=== PATIENT | female | born 1955 | race Caucasian/White ===

== ENCOUNTER 2021-03-24 15:17 | Outpatient (CLI) | payer MEDICARE, SELFPAY ==
--- NOTE | ~2021-03-24 | MM_ITS ---
EXAMINATION: MM screening rashmi BI w santino HISTORY: Screening mammogram TECHNIQUE: Craniocaudal and mediolateral oblique 3-D tomosynthesis images were obtained and synthetic 2-D images were generated. CAD analysis was submitted and interpreted. COMPARISON: 07/28/2017, 12/22/2015, 10/28/2014 bilateral digital screening mammogram examinations BREAST PARENCHYMAL COMPOSITION: The breasts are heterogeneously dense, which may obscure small masses . FINDINGS: There is no evidence of suspicious mass, calcification, or architectural distortion to sugg est malignancy in either breast. There has been no suspicious interval change. IMPRESSION: 1. No mammographic evidence of malignancy. 2. Recommend routine screening mammography in one year. BI-RADS Category 1: Negative Reviewed, dictated and finalized at location A.
== END 2021-03-24 15:18 | disposition home or self-care (01) ==
LOC: ANHIMG 15:26
PROVIDERS: PCP Family Medicine; Visit Provider Student in an Organized Health Care Education/Training Program
DX: Z12.31 Encounter for screening mammogram for malignant neoplasm of breast (principal)
CPT/HCPCS: 77063; 77067

== ENCOUNTER 2021-05-04 02:03 | Day surgery (SDC) | payer MEDICARE, SELFPAY ==
[2021-04-21 15:19] VITALS: BMI 24.5
[2021-05-04 08:44] VITALS: BP 129/76; PULSE 65; RESP 18; TEMP 35.9; O2SAT 99
[2021-05-04] MEDS: LACTATED RINGERS 1,000 ML 150 ML IV CONT (08:46)
--- NOTE | 2021-05-04 08:51 | SUR.PREOP ---
Patient was able to remove jewelry while in Pre Op. Ring was given to her .
--- NOTE | 2021-05-04 09:06 | WPDGICN ---
Assessment and Plan Assessment and plan (1) History of colon polyps: Code(s): Z86.010 - Personal history of colonic polyps Status: Acute Assessment and Plan: Patient has a history of colon polyps for this reason surveillance colonoscopy will be performed. (2) Abdominal discomfort: Code(s): R10.9 - Unspecified abdominal pain Status: Acute Assessment and Plan: Patient has epigastric pain. This appears to have improved with Nexium. EGD is planned to assess more thoroughly. Patient continues to have discomfort at the umbilicus. (3) Abnormal bowel movement: Code(s): R19.8 - Other specified symptoms and signs involving the digestive system and abdomen Status: Acute Assessment and Plan: Patient notices abnormal bowel movements. They have changed in texture incised. Plan to evaluate with colonoscopy. High-fiber diet advised. GI Consult Note Consult date/time: 05/04/21 09:06 HPI: Ofelia Robles is a 66 year old female Presents for both colonoscopy an EGD. Patient has a prior history of colon polyps. Recently has had epigastric discomfort. She presents for colonoscopy because of history of colon polyps. She has had epigastric pain this appears to have improved on starting Nexium. She continues to have vague discomfort at the umbilicus. Family history is noncontributory. [facility] Past Medical History Medical History (Updated 02/10/21 @ 10:11 by Gene Mtz MD) Blood clotting disorder History of colon polyps Hyperlipidemia due to dietary fat intake Surgical History Surgical History H/O section H/O LEEP History of dilation and curettage Family History Family History Sibling Family history of multiple sclerosis Family history of malignant neoplasm of breast, Onset Age: 57 Other Family history of malignant neoplasm Hypertension Social History Social History Smoking status: Never smoker Second hand tobacco smoke exposure: No Alcohol intake: current Drinks per week: 3 Living arrangements: with family Spiritual care concerns: No Meds Home Medications and Allergies Home Medications Medication Instructions Recorded Confirmed Type cholecalciferol (vitamin D3) 50 50 mcg PO DAILY 04/22/20 04/21/21 History mcg (2,000 unit) capsule multivitamin 1 cap PO DAILY 04/22/20 04/21/21 History estradiol 10 mcg vaginal tablet 10 mcg VAGINAL 2XW #24 tablet 11/11/20 04/21/21 Rx oxybutynin chloride 5 mg 5 mg PO DAILY PRN 01/16/21 04/21/21 History tablet,extended release 24 hr esomeprazole magnesium 20 mg 20 mg PO DAILY 02/10/21 04/21/21 History capsule,delayed release atorvastatin 10 mg PO DAILY 04/21/21 04/21/21 History Allergies Allergy/AdvReac Type Severity Reaction Status Date / Time No Known Allergies Allergy Mild Verified 05/04/21 08:43 Vital Signs Vital Signs - 24 hr 05/04/21 08:44 Temperature 96.7 F L Pulse Rate 65 Respiratory Rate 18 Blood Pressure 129/76 Pulse Oximetry 99 Exam Narrative: Exam Narrative: Physical exam reveals patient be alert. Vital signs stable. HEENT exam unremarkable. Patient is anicteric. Lungs are clear to auscultation and percussion. Heart is without murmur or extra sounds. Abdominal exam bowel sounds present soft nontender with no organomegaly. Digital external rectal exam normal.
--- NOTE | 2021-05-04 09:15 | WPDANESEPPF ---
Anes - Initial Pre Proc Eval Procedure: Operation Date: 05/04/21 09:30 Proposed Procedures p Esophagogastroduodenoscopy & Screening Colonoscopy - Gene Mtz MD Date/Time: 05/04/21 09:15 Surgeon: Gene Mtz MD Pre Op Diagnosis: hx. Colon polyp, epigastric pain Patient Data Age: 66 Gender: F Height: 1.8 m Weight: 84.4 kg Last Vital Signs Temp 96.7 F L 05/04/21 08:44 Pulse 65 05/04/21 08:44 Resp 18 05/04/21 08:44 BP 129/76 05/04/21 08:44 Pulse Ox 99 05/04/21 08:44 Allergies Allergy/AdvReac Type Severity Reaction Status Date / Time No Known Allergies Allergy Mild Verified 05/04/21 08:43 Home Medications Medication Instructions Recorded Confirmed Type cholecalciferol (vitamin D3) 50 50 mcg PO DAILY 04/22/20 04/21/21 History mcg (2,000 unit) capsule multivitamin 1 cap PO DAILY 04/22/20 04/21/21 History estradiol 10 mcg vaginal tablet 10 mcg VAGINAL 2XW #24 tablet 11/11/20 04/21/21 Rx oxybutynin chloride 5 mg 5 mg PO DAILY PRN 01/16/21 04/21/21 History tablet,extended release 24 hr esomeprazole magnesium 20 mg 20 mg PO DAILY 02/10/21 04/21/21 History capsule,delayed release atorvastatin 10 mg PO DAILY 04/21/21 04/21/21 History Patient hx anesthesia problems: none Family hx anesthesia problems: none PMFSH Past Medical History Medical History (Updated 02/10/21 @ 10:11 by Gene Mtz MD) Blood clotting disorder History of colon polyps Hyperlipidemia due to dietary fat intake Surgical History Surgical History H/O section H/O LEEP History of dilation and curettage Family History Family History Sibling Family history of multiple sclerosis Family history of malignant neoplasm of breast, Onset Age: 57 Other Family history of malignant neoplasm Hypertension Social History Social History Smoking status: Never smoker Second hand tobacco smoke exposure: No Alcohol intake: current Drinks per week: 3 Living arrangements: with family Spiritual care concerns: No Anes - Eval Final PreProcedure Day of Procedure 05/04/21 09:15 Patient weight: normal Heart: regular rate and rhythm Lungs: clear to auscultation Airway: Mallampati scale class II Neurological: alert and oriented Last oral intake: >/= 8 hours ASA classification: II Emergent: no Anesthetic plan: proceed Anesthesia type and monitoring: general GIVS and standard monitoring Informed Consent: The patient's anesthetic plan and its attendant risks and benefits were discussed with the patient/family/POA. Questions were solicited and answers provided to the satisfaction of the patient/family/POA.
[2021-05-04 10:22] VITALS: BP 121/79; PULSE 51; RESP 21; O2SAT 100
[2021-05-04 10:32] VITALS: BP 120/73; PULSE 51; RESP 20; O2SAT 99
[2021-05-04 10:42] VITALS: BP 126/80; PULSE 46; RESP 16; O2SAT 99
== END 2021-05-04 10:53 | disposition home or self-care (01) ==
PROVIDERS: PCP Family Medicine; Visit Provider Internal Medicine Gastroenterology
PROC: 0DJ08ZZ Inspection of Upper Intestinal Tract, Via Natural or Artificial Opening Endoscopic (ICD-10-PCS; CPT 43235; principal; 2021-05-04 09:30)
DX: Z12.11 Encounter for screening for malignant neoplasm of colon (principal); D12.4 Benign neoplasm of descending colon; R10.13 Epigastric pain; K57.30 Diverticulosis of large intestine without perforation or abscess without bleeding; K64.8 Other hemorrhoids; E78.5 Hyperlipidemia, unspecified
CPT/HCPCS: 45385; 43239; 87081; 88305; J2001; J2704; J7120

== ENCOUNTER 2022-04-16 12:49 | Outpatient (CLI) | payer MEDICARE, SELFPAY ==
--- NOTE | ~2022-04-16 | DEXA_ITS ---
Bone Density Report Name: KEY LANDA Age: 67 Sex: Female Ethnicity: White Date of : 1955 Indication: postmenopausal; screening for osteoporosis; height loss; Referring Provider: NORIS FIGUEROA Study: Bone densitometry was performed. Exam Date: April 16, 2022 Accession number: [id number] Bone Density: Region BMD T-score Z-score Classification AP Spine(L1-L4) 1.150 0.9 2.8 Normal Femoral Neck (Left) 0.748 -0.9 0.7 Normal Total Hip (Left) 0.876 -0.5 0.7 Normal Femoral Neck (Right) 0.820 -0.3 1.3 Normal Total Hip (Right) 0.934 -0.1 1.2 Normal Total Hip Mean 0.905 -0.3 1.0 Normal World Health Organization criteria for BMD impression classify patients as: Normal (T-score at or above -1.0), Osteopenia (T-score between -1.0 and -2.5), or Osteoporosis (T-score at or below -2.5). 10-year Fracture Risk: FRAX not reported because: All T-scores for Spine Total, Hip Total, Femoral Neck at or above -1.0 Previous Exams: Region Exam Age BMD T-score BMD Change BMD Change Date g/cm2 vs Baseline vs Previous AP Spine (L1-L4) 04/16/2022 67 1.150 0.9 -0.017 (-1.4%) -0.017 (-1.4%) 07/03/2019 64 1.167 1.1 Total Hip(Left) 04/16/2022 67 0.876 -0.5 -0.026 (-2.8%) -0.026 (-2.8%) 07/03/2019 64 0.902 -0.3 Total Hip(Right) 04/16/2022 67 0.934 -0.1 0.011 (1.2%) 0.011 (1.2%) 07/03/2019 64 0.923 -0.2 *Denotes significance at 95% confidence level, LSC for AP Spine = 0.022 g/cm2, LSC for Total Hip = 0.027 g/cm2 Clinical Information Provided by Patient: Has used the following medications: Vitamin D Patient maximum height was 70 Menopause Age: 55 Drinks caffeinated beverages Onset of menses at age 14 Number of children 3 Impression: The patient has normal bone mass. No significant bone loss was observed. Discussion: BONE DENSITY IS ABOVE THE MINIMUM DESIRABLE LEVEL AT ALL SKELETAL SITES TESTED. This patient?s bone mineral density is above the minimum desirable level (T-score -1.0 or better) at all sites measured. The patient should follow a healthful lifestyle (good nutrition with adequate calcium and vitamin D, and appropriate weight-bearing exercise). Follow-Up: Consider repeating this study in 5 years or sooner if there is some new clinical indication. Reported by: RAFAELA on 04/16/2022 1:20:00 PM. Reviewed, dictated and finalized at location Reena JO
== END 2022-04-16 12:50 | disposition home or self-care (01) ==
LOC: ANHIMG 12:54
PROVIDERS: PCP Family Medicine; Visit Provider Student in an Organized Health Care Education/Training Program
DX: Z78.0 Asymptomatic menopausal state (principal)
CPT/HCPCS: 77080

== ENCOUNTER 2023-04-08 08:20 | Outpatient (CLI) | payer MEDICARE, SELFPAY ==
[2023-04-08 18:29] LABS: Alanine Aminotransferase 24 U/L (6-35); Albumin Level 3.9 g/dL (3.5-5.1); Alkaline Phosphatase 80 U/L (38-126); Anion Gap 2 mmol/L (8-16); Aspartate Amino Transferase 43 U/L (14-36); Bilirubin,Total 0.8 mg/dL (0.2-1.3); Blood Urea Nitrogen 14 mg/dL (7-17); Calcium 8.5 mg/dL (8.4-10.2); Carbon Dioxide 29 mmol/L (22-30); Chloride 107 mmol/L (98-107); Cholesterol 196 mg/dL (0-200); Estimated Glomerular Filt Rate > 60; Glucose 80 mg/dL (65-110); HDL Direct 88 mg/dL; Potassium 4.3 mmol/L (3.4-5.0); Sodium 138 mmol/L (137-145); Triglycerides 51 mg/dL (<150)
[2023-04-08 18:39] LABS: Mean Corpuscular Hemoglobin 26.1 pg (26-34); Mean Corpuscular Volume 84.3 fl (80-100); Mean Platelet Volume 9.7 fl (7.4-10.4); Platelet Count Result 348 k/mm3 (150-375); Red Blood Count 4.98 M/mm3 (4.2-5.4); Red Cell Distribution Width 18.5 % (11.5-14.5); White Blood Count 4.3 K/mm3 (4.5-10.0)
[2023-04-08 18:41] LABS: LDL Cholesterol Direct 83 mg/dL
[2023-04-08 18:59] LABS: Thyroid Stimulating Hormone 0.801 uIU/mL (0.465-4.680)
== END 2023-04-08 08:21 | disposition home or self-care (01) ==
LOC: ANHGOSHLAB 08:23
PROVIDERS: PCP Family Medicine; Visit Provider Family Medicine
DX: E78.00 Pure hypercholesterolemia, unspecified (principal); E66.3 Overweight; Z79.899 Other long term (current) drug therapy
CPT/HCPCS: 36415; 80053; 80061; 84443; 85027

== ENCOUNTER 2023-12-14 08:19 | Outpatient (CLI) | payer MEDICARE, SELFPAY ==
[2023-12-14 19:17] LABS: Alanine Aminotransferase 22 U/L (6-35); Albumin Level 3.7 g/dL (3.5-5.1); Alkaline Phosphatase 75 U/L (38-126); Anion Gap 4 mmol/L (8-16); Aspartate Amino Transferase 47 U/L (14-36); Bilirubin,Total 0.7 mg/dL (0.2-1.3); Blood Urea Nitrogen 18 mg/dL (7-17); Calcium 9.1 mg/dL (8.4-10.2); Carbon Dioxide 28 mmol/L (22-30); Chloride 106 mmol/L (98-107); Cholesterol 180 mg/dL (0-200); Estimated Glomerular Filt Rate > 60; Glucose 81 mg/dL (65-110); HDL Direct 79 mg/dL; Potassium 4.2 mmol/L (3.4-5.0); Sodium 138 mmol/L (137-145); Triglycerides 54 mg/dL (<150)
[2023-12-14 19:23] LABS: Vitamin D 25 Hydroxy 28.7 ng/mL
[2023-12-14 19:28] LABS: LDL Cholesterol Direct 84 mg/dL
== END 2023-12-14 08:20 | disposition home or self-care (01) ==
LOC: ANHGOSHLAB 08:21
PROVIDERS: PCP Family Medicine; Visit Provider Nurse Practitioner
DX: E78.00 Pure hypercholesterolemia, unspecified (principal); E55.9 Vitamin D deficiency, unspecified
CPT/HCPCS: 36415; 80053; 80061; 82306

== ENCOUNTER 2024-06-22 08:45 | Outpatient (CLI) | payer MEDICARE, SELFPAY ==
[2024-06-22 14:38] LABS: Hematocrit 37.3 % (37.0-47.0); Hemoglobin 11.3 g/dL (12.0-15.0); Mean Corpuscular HGB Conc 30.3 g/dl (32-36); Mean Corpuscular Hemoglobin 24.8 pg (26-34); Mean Corpuscular Volume 81.8 fl (80-100); Mean Platelet Volume 10.5 fl (7.4-10.4); Platelet Count Result 346 k/mm3 (150-375); Red Blood Count 4.56 M/mm3 (4.2-5.4)
[2024-06-22 15:05] LABS: Alanine Aminotransferase 16 U/L (6-35); Albumin Level 3.7 g/dL (3.5-5.1); Alkaline Phosphatase 79 U/L (38-126); Anion Gap 8 mmol/L (4-12); Aspartate Amino Transferase 49 U/L (14-36); Bilirubin,Total 0.7 mg/dL (0.2-1.3); Blood Urea Nitrogen 13 mg/dL (7-17); Calcium 8.7 mg/dL (8.4-10.2); Carbon Dioxide 27 mmol/L (22-30); Chloride 104 mmol/L (98-107); Cholesterol 166 mg/dL (0-200); Estimated Glomerular Filt Rate > 60; Glucose 87 mg/dL (65-110); HDL Direct 80 mg/dL; Potassium 4.2 mmol/L (3.4-5.0); Sodium 139 mmol/L (137-145); Triglycerides 76 mg/dL (<150)
[2024-06-22 15:16] LABS: LDL Cholesterol Direct 61 mg/dL
[2024-06-22 15:34] LABS: Thyroid Stimulating Hormone 0.617 uIU/mL (0.465-4.680)
[2024-06-22 15:54] LABS: Vitamin D 25 Hydroxy 33.8 ng/mL
== END 2024-06-22 08:46 | disposition home or self-care (01) ==
LOC: ANHGOSHLAB 08:47
PROVIDERS: PCP Family Medicine; Visit Provider Nurse Practitioner
DX: E78.5 Hyperlipidemia, unspecified (principal); E55.9 Vitamin D deficiency, unspecified
CPT/HCPCS: 36415; 80053; 80061; 82306; 84443; 85027

== ENCOUNTER 2024-06-29 08:01 | Outpatient (CLI) | payer MEDICARE, SELFPAY ==
--- NOTE | ~2024-06-29 | US_ITS ---
Limited Abdominal Sonogram: Real-time sonographic imaging of the right upper quadrant was performed. Clinical History: Abnormal serum enzyme levels Findings: The liver appears normal with no evidence of mass lesion or bile duct dilatation. Main por argenis vein demonstrates normal direction of flow. The gallbladder is well distended, and appears normal with no evidence of gallstone or wall thickening. The common bile duct measures 3 mm. The visualize d pancreas, aorta, and IVC are unremarkable. Impression: No significant abnormality seen. Reviewed, dictated and finalized at location M. Impression: No significant abnormality seen.
== END 2024-06-29 08:02 | disposition home or self-care (01) ==
LOC: GOSHIMG 08:02
PROVIDERS: PCP Family Medicine; Visit Provider Nurse Practitioner
DX: R74.8 Abnormal levels of other serum enzymes (principal)
CPT/HCPCS: 76705

== ENCOUNTER 2024-07-05 14:00 | Outpatient (CLI) | payer MEDICARE, SELFPAY ==
--- NOTE | ~2024-07-05 | MM_ITS ---
EXAMINATION: MM screening rashmi BI w santino HISTORY: Screening mammogram, family history of breast cancer in her sister. TECHNIQUE: Craniocaudal and mediolateral oblique 3-D tomosynthesis images were obtained and synthetic 2-D images were generated. CAD analysis was submitted and interpreted. COMPARISON: 03/24/2021 BREAST PARENCHYMAL COMPOSITION:Dense: The breasts are heterogeneously dense, which may obscure small masses. FINDINGS: No suspicious mass, calcification, or architectural distortion are identified in either nikki ast to suggest malignancy. There has been no suspicious interval change. IMPRESSION: No mammographic evidence of malignancy. Recommend routine screening mammography in one year. BI-RADS Category 1: Negative Reviewed, dictated and finalized at location .
== END 2024-07-05 14:01 | disposition home or self-care (01) ==
LOC: ANHIMG 14:03
PROVIDERS: PCP Family Medicine; Visit Provider Nurse Practitioner
DX: Z12.31 Encounter for screening mammogram for malignant neoplasm of breast (principal)
CPT/HCPCS: 77063; 77067

== ENCOUNTER 2024-08-17 11:35 | Outpatient (CLI) | payer MEDICARE, SELFPAY ==
[2024-08-17 11:57] LABS: Basophils Absolute Auto 0.1 K/mm3 (0.0-0.1); Eosinophils Absolute Auto 0.2 K/mm3 (0-0.3); Eosinophils Percent Auto 3.2 % (0-4.4); Hematocrit 36.4 % (37.0-47.0); Immature Granulocyte Absolute 0.02 K/mm3 (0.00-0.031); Immature Granulocyte Percent A 0.4 % (0-0.5); Immature Reticulocyte Fraction 16.3 % (3.0-15.9); Lymphocytes Absolute Auto 2.26 K/mm3 (0.9-3.2); Lymphocytes Percent Auto 40.3 % (18.3-44.2); Mean Corpuscular HGB Conc 30.2 g/dl (32-36); Mean Corpuscular Hemoglobin 23.5 pg (26-34); Mean Corpuscular Volume 77.8 fl (80-100); Mean Platelet Volume 8.9 fl (7.4-10.4); Monocytes Absolute Auto 0.4 K/mm3 (0.1-0.6); Monocytes Percent Auto 7.1 % (2.6-8.5); Neutrophils Absolute Auto 2.6 K/mm3 (1.3-6.7); Platelet Count Result 357 k/mm3 (150-375); Red Blood Count 4.68 M/mm3 (4.2-5.4); Red Cell Distribution Width 16.4 % (11.5-14.5); Reticulocyte Hemoglobin Conten 23.1 pg (28.2-36.6); Reticulocyte Percent 1.06 % (0.7-4.3); Reticulocytes Absolute 0.05 10^6/uL (0.02-0.10); White Blood Count 5.6 K/mm3 (4.5-10.0)
[2024-08-17 13:25] LABS: Iron 33 ug/dL (37-170)
[2024-08-17 13:27] LABS: Alanine Aminotransferase 21 U/L (6-35); Albumin Level 4.1 g/dL (3.5-5.1); Alkaline Phosphatase 82 U/L (38-126); Anion Gap 7 mmol/L (4-12); Aspartate Amino Transferase 32 U/L (14-36); Bilirubin,Total 0.7 mg/dL (0.2-1.3); Blood Urea Nitrogen 13 mg/dL (7-17); Carbon Dioxide 26 mmol/L (22-30); Chloride 106 mmol/L (98-107); Estimated Glomerular Filt Rate > 60; Glucose 91 mg/dL (65-110); Potassium 4.4 mmol/L (3.4-5.0); Sodium 139 mmol/L (137-145)
[2024-08-17 13:36] LABS: Percent Iron Saturation 7 % (20-50)
[2024-08-17 14:03] LABS: Ferritin 5.47 ng/mL (11.1-264)
[2024-08-17 14:33] LABS: Folic Acid 13.7 ng/mL (2.76->20)
== END 2024-08-17 11:36 | disposition home or self-care (01) ==
LOC: ANHLAB 11:38
PROVIDERS: Internal Medicine; PCP Family Medicine; Visit Provider Internal Medicine Hematology & Oncology
DX: D64.9 Anemia, unspecified (principal)
CPT/HCPCS: 36415; 80053; 82607; 82728; 82746; 83540; 83550; 85025; 85046

== ENCOUNTER 2024-11-06 09:50 | Outpatient (CLI) | payer MEDICARE, SELFPAY ==
[2024-11-06 13:47] LABS: Hematocrit 38.8 % (37.0-47.0); Hemoglobin 11.3 g/dL (12.0-15.0); Mean Corpuscular HGB Conc 29.1 g/dl (32-36); Mean Corpuscular Hemoglobin 22.3 pg (26-34); Mean Corpuscular Volume 76.5 fl (80-100); Mean Platelet Volume 9.6 fl (7.4-10.4); Platelet Count Result 368 k/mm3 (150-375); Red Blood Count 5.07 M/mm3 (4.2-5.4); Red Cell Distribution Width 19.6 % (11.5-14.5); White Blood Count 4.9 K/mm3 (4.5-10.0)
[2024-11-06 14:10] LABS: Alanine Aminotransferase 18 U/L (6-35); Alkaline Phosphatase 86 U/L (38-126); Anion Gap 7 mmol/L (4-12); Aspartate Amino Transferase 32 U/L (14-36); Bilirubin,Total 0.8 mg/dL (0.2-1.3); Blood Urea Nitrogen 16 mg/dL (7-17); Carbon Dioxide 29 mmol/L (22-30); Chloride 105 mmol/L (98-107); Estimated Glomerular Filt Rate > 60; Glucose 87 mg/dL (65-110); Potassium 4.5 mmol/L (3.4-5.0); Sodium 141 mmol/L (137-145)
[2024-11-06 14:43] LABS: Ferritin 5.66 ng/mL (11.1-264)
--- OUTSIDE RECORDS SUMMARY | 2024-11-08 17:04 | XMS_ITS | Clinical Summary ---
Author Organization [facility] Address [address] [place] [address] Care Team Providers Care Patient Intake Representative Name Role Phone Elliot Malhotra MD Primary Care Provider [phone] Tasha Mccray RN Unavailable [phone] Allergies No known active allergies Medications diclofenac DR (VOLTAREN) 75 mg EC tablet TK 1 T PO BID PRN; stopped 3 months ago 1 8 Active multivitamin capsuleIndicati ons:stop for surgery Take 1 capsule by mouth daily. Active aspirin 325 mg EC tablet Take 1 tablet by mouth every 12 hours until finished 30 tablet 8 Active Additional Information Patient not taking.Reported on 10/16/2023 HYDROcodone-ebony taminophen (NORCO) 5-325 mg per tabletIndicatio ns:Pain Take 1-2 tablets by mouth every 4-6 hours as needed for pain 13 tablet 8 Active Additional Information Patient not taking.Reported on 10/16/2023 ascorbic acid (VITAMIN C) 500 mg tablet,chewable Take 1 tablet by mouth 2 times daily until finished 60 tablet/chew tab 8 Active Additional Information Patient not taking.Reported on 10/16/2023 amoxicillin-cla vulanate (AUGMENTIN) 875-125 mg per tablet Take 1 tablet by mouth 2 (two) times a day. Active ibuprofen (ibuprofen) 200 mg tab/capIndicati ons:stopped 07/23/18 Take 600 mg by mouth every 6 (six) hours as needed for pain. Active cholecalciferol (VITAMIN D-3) 1,000 unit tablet Take 1,000 Units by mouth daily. Active atorvastatin (LIPITOR) 10 mg tablet Take 1 tablet (10 mg total) by mouth nightly at bedtime 3 Active triamcinolone (KENALOG) 0.1 % cream 3 Active Active Problems Problem Noted Date Diagnosed Date Leg pain 01/22/2019 Complex tear of medial menis cus of left knee as current injury 07/04/2018 Overview (07/04/2018): Added automatically from request for surgery [id number] Surgical History Surgery Date Site/Laterality Comments SECTION x 3 FL UPPER GI AIR CONTRAST W KUB 11/23/2018 Left Medical History Medical History Date Comments H/O blood clots 1995 Superficial Vein LLE? Hypercholesteremia improved Family History Medical History Relation Name Comments Mental illness Daughter FH: mental il lness - (Added by TW Conv) Cancer Father Family history of malignant neoplasm - (Added by TW Conv) Heart disease Father Family history of cardiac disorder - (Added by TW Conv) Hypertension Father Family history of hypertension - (Added by TW Conv) Hypertension Sister 1 Family history of hypertension - (Added by TW Conv) Cancer Sister 2 Family history of malignant neoplasm - (Added by TW Conv) Hypertension Son 1 Family history of hypertension - (Added by TW Conv) Cancer Son 2 Family history of malignant neoplasm - (Added by TW Conv) Relation Name Status Comments Daughter Father Sister 1 Sister 2 Son 1 Son 2 Social History Tobacco Use Types Packs/Day Years Used Date Smoking Tobacco: Never Smokeless Tobacco: Never Tobacco Cessation:Counseling Given: Not Answered Alcohol Use Standard Drinks/Week Comments Yes 0 (1 standard drink = 0.6 oz pur e alcohol) Socially Personal Safety Answer Date Recorded Getting School Help Needed Not on file 10/16 Comments Unknown Sex and Gender Information Value Date Recorded Sex Assigned at Not on file Legal Sex 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 Gender Identity Not on file Sexual Orientation Not on file Obstetrics History Last Filed Vital Signs Vital Sign Reading Time Taken Comments Blood Pressure 128/82 10/16/2023 11:10 AM LAUNDRY LABORER Pulse 78 10/16/2023 11:10 AM LAUNDRY LABORER Temperature 36.6 ??C (97.8 ??F) 10/16/2023 11:[address] Respiratory Rate 12 10/16/2023 11:10 AM LAUNDRY LABORER Oxygen Saturation 98% 10/16/2023 11:10 AM LAUNDRY LABORER Inhaled Oxygen Concentration - - Weight 83.9 kg (185 lb) 10/16/2023 11:10 AM LAUNDRY LABORER Height 162.6 cm (5' 4 ) 10/16/2023 11:10 AM LAUNDRY LABORER Body Mass Index 31.76 10/16/2023 11:10 AM LAUNDRY LABORER Plan of Treatment Health Maintenance Due Date Last Done Comments Breast Cancer Screening-Mammogram 1955 Colon Cancer Screening-Colonoscopy 1955 Depression Screening 1955 Fall Risk Assessment 1955 Hepatitis C Screening 1955 Osteoporosis Screening-Bone Density Scan 1955 Hepatitis B Screening 02/09/1974 Well Visit 65+ 02/09/2021 Covid-19 Vaccine (2023-2 5 season) 2024 06/14/2023, 07/23/2022, 01/26/2022, Additional history exists Influenza Vaccine (#1) 2024 , 07/23/2022, 07/23/2021, Additional history exists DTaP/Tdap/Td Vaccine (2 - Td or Tdap) 12/09/2031 12/09/2021 Zoster Vaccine Completed 12/29/2022, 11/18, 05/03/2017 Pneumococcal vaccine 65+ Completed 05/26/2023, 07/17 [place] Care Teams Patient Intake Representative Relationship Specialty Start Date End Date Elliot Malhotra MD [address] [place] [address] PCP - General Family Medicine 11/11/20 Tasha Mccray, RN [address] [address] Registered Nurse It Security Administrator 11/11/20
--- OUTSIDE RECORDS SUMMARY | 2024-11-08 17:04 | XMS_ITS | Referral Summary ---
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 Gender Identity Not on file Sexual Orientation Not on file Last Filed Vital Signs Vital Sign Reading Time Taken Comments Blood Pressure 128/82 10/16/2023 11:10 AM METAL BUFFER Pulse 78 10/16/2023 11:10 AM METAL BUFFER Temperature 36.6 ??C (97.8 ??F) 10/16/2023 11:[address] Respiratory Rate 12 10/16/2023 11:10 AM METAL BUFFER Oxygen Saturation 98% 10/16/2023 11:10 AM METAL BUFFER Inhaled Oxygen Concentration - - Weight 83.9 kg (185 lb) 10/16/2023 11:10 AM METAL BUFFER Height 162.6 cm (5' 4 ) 10/16/2023 11:10 AM METAL BUFFER Body Mass Index 31.76 10/16/2023 11:10 AM METAL BUFFER Plan of Treatment Not on file Insurance [facility] [place] Care Teams Gas Desulfurizer Relationship Specialty Start Date End Date Elliot Malhotra MD [address] [place] [address] PCP - General Family Medicine 11/11/20 Tasha Mccray, RN [address] [address] Registered Nurse Residence Hall Director 11/11/20
--- OUTSIDE RECORDS SUMMARY | 2024-11-08 17:04 | XMS_ITS | Clinical Summary ---
Author Organization [facility] Jenny hernández Yonatan Address [address] [place] [address] Care Team Providers Care Scale Reclamation Tender Name Role Phone Lis Walker DO Primary Care Provider [phone] Allergies No known active allergies Medications atorvastatin (LIPITOR) 10 mg tablet Take 10 mg by mouth daily. Active ibuprofen/diphenhy dramine cit (ADVIL PM ORAL) Take by mouth. Active CALCIUM CARBONATE-VITAMIN D3 ORAL Take by mouth. Active cannabidiol, CBD, product, for documentation purposes, Take by mouth. Wana- 1/2 gummie 5 mg Active multivitamin (DAILY-IGGY) tablet Take 1 Tablet by mouth daily. Active Active Problems No known active problems Encounters Date Type Department Care Team Description 11/07/2024 External Device Data [facility] ABSTRACTION Provider, Abstract 08/20/2024 External Device Data [facility] ABSTRACTION Provider, Abstract 08/20/[address] [facility] Oncology and Hematology - [address] [place] [address] Kriss Yun MD Chronic anemia (Primary Dx) 08/20/[address] [facility]ematology - [address] [place] [address] Kriss Yun MD Lab Results 08/20/[address] [facility] [address] [place] [id number] Kriss Yun MD 08/17/2024 10:30 AM CDT Office Visit [facility] On[facility] Hematology - [address] [place] [address] Kriss Yun MD Chronic anemia (Primary Dx) from Last 3 Months Family History Medical History Relation Name Comments Heart Disease Brother No Known Problems Daughter 1 No Known Problems Daughter 2 Heart Disease Father Leukemia Father No Known Problems Mother Breast Cancer Sister 1 Lymphoma Sister 2 No Known Problems Sister 3 No Known Problems Sister 4 No Known Problems Son Relation Name Status Comments Brother Alive Daughter 1 Alive Daughter 2 Alive Father Mother Sister 1 Alive Sister 2 Alive Sister 3 Alive Sister 4 Alive Son Alive Social History Tobacco Use Types Packs/Day Years Used Date Smoking Tobacco: Never Smokeless Tobacco: Never Alcohol Use Standard Drinks/Week Comments Yes 0 (1 standard drink = 0.6 oz pure alcohol) occassionally very rarely once a month maybe Comments No Sex and Gender Information Value Date Recorded Sex Assigned at Not on file Legal Sex Female 11:20 AM CDT Gender Identity Not on file Sexual Orientation Not on file Last Filed Vital Signs Vital Sign Reading Time Taken Comments Blood Pressure 129/89 08/17/2024 10:20 AM CDT Pulse 60 08/17/2024 10:20 AM CDT Temperature 36.7 ??C (98 ??F) 08/17/2024 10:20 AM CDT Respiratory Rate 16 08/17/2024 10:20 AM CDT Oxygen Saturation 98% 08/17/2024 10:20 AM CDT Inhaled Oxygen Concentration - - Weight 83.9 kg (185 lb) 08/17/2024 10:20 AM CDT Height 177.8 cm (5' 10 ) 08/17/2024 10:20 AM CDT Body Mass Index 26.54 08/17/2024 10:20 AM CDT Plan of Treatment Health Maintenance Due Date Last Done Comments Pre-Diabetes and Diabetes Screening 1955 DTAP/TDAP/TD VACCINES (1 - Tdap) 02/09/1975 BREAST CANCER SCREENING 1996 COLORECTAL SCREENING 02/09/2001 Colorectal Cancer Screening 02/09/2001 FIT-DNA Q 3 years 02/09/2001 FIT/FOBT Q 1 year 02/09/2001 Flex Sig/CT Colonography Q 5 years 02/09/2001 ZOSTER VACCINE (1 of 2) 02/09/2006 OSTEOPOROSIS SCREENING 02/09/2021 PNEUMOCOCCAL VACCINE 65+ YEARS (1 of 1 - PCV) 02/10/20 21 INFLUENZA VACCINE (#1) 2024 RSV VACCINE (60+ or ) (1 - 1-dose 75+ series) 02/09/2031 Procedures Procedure Name Priority Date/Time Associated Diagnosis Comments COMPREHENSIVE METABOLIC PANEL Routine 08/17/2024 9:25 AM CDT COMPREHENSIVE METABOLIC PANEL Routine 08/17/2024 9:20 AM CDT from Last 3 Months Results * COMPREHENSIVE METABOLIC PANEL (08/17/2024 9:25 AM CDT) Only the most recent of2 resultswithin the time period is included. Blood us Kriss Yun MD CHEMISTRY ORDERABLES Final Result from Last 3 Months Insurance MEDICARE PART A AND B [employer] MEDICARE SUPP AESSI Care Teams Scale Reclamation Tender Relationship Specialty Start Date End Date Lis Walker DO [facility] [address] [place] [address] PCP - General Family Practice 08/17/24
== END 2024-11-06 09:51 | disposition home or self-care (01) ==
LOC: ANHGOSHLAB 09:51
PROVIDERS: PCP Family Medicine; Visit Provider Family Medicine
DX: D50.9 Iron deficiency anemia, unspecified (principal); R79.89 Other specified abnormal findings of blood chemistry; Z79.899 Other long term (current) drug therapy
CPT/HCPCS: 36415; 80053; 82728; 85027

== ENCOUNTER 2024-11-14 03:21 | Day surgery (SDC) | payer MEDICARE, SELFPAY ==
[2024-11-07 11:49] VITALS: BMI 26.3
--- OUTSIDE RECORDS SUMMARY | 2024-11-14 03:24 | XMS_ITS | Referral Summary ---
Author Organization [facility] Address [address] [place] [address] Care Team Providers Care Catalog Specialist Name Role Phone Elliot Malhotra MD Primary Care Provider [phone] Tasha Mccray RN Unavailable [phone] Allergies No known active allergies Medications diclofenac [...] (07/04/2018): Added automatically from request for surgery [id number] Social History Tobacco Use Types Packs/Day Years [...] on file Legal Sex Female 5:00 AM TAPING SUPERVISOR Gender Identity Not on file Sexual Orientation Not on file Last Filed Vital Signs Vital Sign Reading Time Taken Comments Blood Pressure 128/82 10/16/2023 11:10 AM TAPING SUPERVISOR Pulse 78 10/16/2023 11:10 AM TAPING SUPERVISOR Temperature 36.6 ??C (97.8 ??F) 10/16/2023 11:[address] Respiratory Rate 12 10/16/2023 11:10 AM TAPING SUPERVISOR Oxygen Saturation 98% 10/16/2023 11:10 AM TAPING SUPERVISOR Inhaled Oxygen Concentration - - Weight 83.9 kg (185 lb) 10/16/2023 11:10 AM TAPING SUPERVISOR Height 162.6 cm (5' 4 ) 10/16/2023 11:10 AM TAPING SUPERVISOR Body Mass Index 31.76 10/16/2023 11:10 AM TAPING SUPERVISOR Plan of Treatment Not on file Insurance [facility] [place] Care Teams Catalog Specialist Relationship Specialty Start Date End Date Elliot Malhotra MD [address] [place] [address] PCP - General Family Medicine 11/11/20 Tasha Mccray, RN [address] [address] Registered Nurse Reel Stripper 11/11/20
--- OUTSIDE RECORDS SUMMARY | 2024-11-14 03:24 | XMS_ITS | Continuity of Care Document ---
Author Organization [facility]. If a dditional information is needed, contact Health Information Management at [phone] Address [address] [place] [address] Phone Care Team Providers Care Heel Breaster Name Role Phone Unavailable Unavailable Unavailable Unavailable Unavailable Unavailable Unavailable Unavailable Unavailable Problems Urinary tract infectious dis ease Onset:04-Jan-2023 Gera ESPINOZA Sciatica Onset:04-Jan-2023 Gera ESPINOZA Allergies and Adverse Reactions No Known Allergies(Allergy) Onset: 04-Jan-2023 Social History Smoking Status Never smoked tobacco Recorded: 04-Jan-2023
--- OUTSIDE RECORDS SUMMARY | 2024-11-14 03:24 | XMS_ITS | Clinical Summary ---
Author Organization [facility] Address [address] [place] [address] Care Team Providers Care Metal Sprayer Protective Coating Name Role Phone Elliot Malhotra MD Primary Care Provider [phone] Tasha Mccray RN Unavailable [phone] Allergies No known active allergies Medications diclofenac [...] (07/04/2018): Added automatically from request for surgery [id number] Surgical History Surgery Date Site/Laterality Comments SECTION [...] on file Legal Sex Female 5:00 AM SUPERVISING FLOORPERSON Gender Identity Not on file Sexual Orientation Not on file Obstetrics History Last Filed Vital Signs Vital Sign Reading Time Taken Comments Blood Pressure 128/82 10/16/2023 11:10 AM SUPERVISING FLOORPERSON Pulse 78 10/16/2023 11:10 AM SUPERVISING FLOORPERSON Temperature 36.6 ??C (97.8 ??F) 10/16/2023 11:[address] Respiratory Rate 12 10/16/2023 11:10 AM SUPERVISING FLOORPERSON Oxygen Saturation 98% 10/16/2023 11:10 AM SUPERVISING FLOORPERSON Inhaled Oxygen Concentration - - Weight 83.9 kg (185 lb) 10/16/2023 11:10 AM SUPERVISING FLOORPERSON Height 162.6 cm (5' 4 ) 10/16/2023 11:10 AM SUPERVISING FLOORPERSON Body Mass Index 31.76 10/16/2023 11:10 AM SUPERVISING FLOORPERSON Plan of Treatment Health Maintenance Due Date [...] CHOICE [place]F [place] Care Teams Metal Sprayer Protective Coating Relationship Specialty Start Date End Date Elliot Malhotra MD [address] [place] [address] PCP - General Family Medicine 11/11/20 Tasha Mccray, RN [address] [address] Registered Nurse Welder Assistant 11/11/20
--- OUTSIDE RECORDS SUMMARY | 2024-11-14 03:24 | XMS_ITS | Clinical Summary ---
Author Organization [facility] Jenny hernández Yonatan Address [address] [place] [address] Care Team Providers Care Investigation Division Captain Name Role Phone Lis Walker DO Primary Care Provider [phone] Allergies No known active allergies Medications atorvastatin [...] External Device Data STL ABSTRACTION Provider, Abstract 11/07/2024 External Device Data STL ABSTRACTION Provider, Abstract 08/20/2024 External Device Data STL ABSTRACTION Provider, Abstract 08/20/2024 Orders Only [facility] Oncology and Hematology - [address] [facility] [place] [address] Kriss Yun MD Chronic anemia (Primary Dx) 08/20/2024 Telephone [facility] Oncology and Hematology - [address] [place] [address] Kriss Yun MD Lab Results 08/20/2024 Orders Only [facility] Oncology and Hematology - [address] [facility] [place] [id number] Kriss Yun MD 08/17/2024 10:30 AM CDT Office Visit [facility] Oncology and Hematology - [place] [address] [place] [id number] Kriss Yun MD Chronic anemia (Primary [...] Flex Sig/CT Colonography Q 5 years 02/09/2001 PNEUMOCOCCAL VACCINE 65+ YEARS (1 of 1 - PCV) 02/10/20 06 ZOSTER VACCINE (1 of 2) 02/09/2006 OSTEOPOROSIS SCREENING 02/09/2021 INFLUENZA VACCINE (#1) 2024 RSV VACCINE (60+ [...] resultswithin the time period is included. Blood Kriss Yun MD CHEMISTRY ORDERABLES Final Result from Last 3 Months Insurance MEDICARE PART A AND B AETNA MEDICARE SUPP AESSI Care Teams Investigation Division Captain Relationship Specialty Start Date End Date Lis Walker DO [facility] [address] [place] [address] PCP - General Family Practice 08/17/24
[2024-11-14 12:23] VITALS: BP 135/72; PULSE 53; RESP 18; TEMP 36.9; O2SAT 98; BMI 26.5
--- NOTE | 2024-11-14 12:33 | PM.IMHP ---
H&P: HPI History of Present Illness Date/Time: 11/14/24 12:33 Chief Complaint: Iron deficiency anemia Narrative: the patient has been diagnosed with iron deficiency anemia in 2023. In April 2021 she underwent an EGD which was normal, and a colonoscopy showed a sessile serrated adenoma which was removed. She denies melena, hematemesis, hematochezia, abdominal pain, change in bowel habits or weight loss. Of note, she has been taking Advil every night for spinal stenosis but she stopped taking it 1 month ago. referred today for EGD and colonoscopy. Review of Systems Review of Systems: All systems reviewed & are unremarkable except as noted in HPI and below PMFSH Past Medical History Medical History (Updated 11/14/24 @ 12:34 by Neftali Morejon MD) ANAID (iron deficiency anemia) Degenerative arthritis of right knee Exostosis of right posterior calcaneus Achilles tendinitis of right lower extremity Retrocalcaneal bursitis Right ankle. History of measles History of chicken pox Hepatitis C antibody test negative (09/23/17) History of colon polyps Blood clotting disorder Hyperlipidemia due to dietary fat intake Surgical History Surgical History History of dilation and curettage H/O LEEP H/O section 1979, 1982, 1986 Family History Family History Sibling Family history of multiple sclerosis Family history of malignant neoplasm of breast, Onset Age: 57 Multiple sclerosis Rheumatoid arthritis Father Heart disease Hyperlipidemia Grandparent Diabetes mellitus Rheumatoid arthritis Heart disease Other Family history of malignant neoplasm Hypertension Social History Social History Smoking status: Never smoker Second hand tobacco smoke exposure: No Alcohol intake: current Drinks per week: 3 Alcohol use details: couple times a month Substance use: current Substance use type: marijuana and other Other substance usage details: THC gummies Lack of Transportation: No Lack of Food: Never True Current Housing: I Have Housing Concerned About Future Housing: No Difficulty Paying Gas/Electric Bills: No Difficulty Paying for Meds: No Currently Unemployed: No Education: Bachelor's Degree Living arrangements: with family Occupation/Education: retired Gender identity (if verbalized by the patient): Female Sexual Orientation (if Verbalized by the Patient): Straight or Heterosexual Spiritual care concerns: No Agree to blood products: Yes Meds Home Medications and Allergies Home Medications ?Medication ?Instructions ?Recorded ?Confirmed ?Type cholecalciferol (vitamin D3) 50 50 mcg PO DAILY 04/22/20 11/14/24 History mcg (2,000 unit) capsule multivitamin 1 cap PO DAILY 04/22/20 11/14/24 History THC Gummy 5 mg PO QHS 05/26/23 11/14/24 History atorvastatin 10 mg tablet See Rx Instructions .Route 06/07/24 11/14/24 Rx .COMPLEX #90 tabs ibuprofen-diphenhydramine citrate 2 cap PO QHS 06/27/24 11/07/24 History 200 mg-38 mg tablet (Advil PM) escitalopram oxalate 10 mg tablet 10 mg PO DAILY #90 tabs 08/17/24 11/14/24 Rx (Lexapro) sodium,potassium,mag sulfates 17.5 See Rx Instructions PO .COMPLEX 11/07/24 Rx gram-3.13 gram-1.6 gram oral soln #354 mL (Suprep Bowel Prep Kit) Allergies Allergy/AdvReac Type Severity Reaction Status Date / Time No Known Allergies Allergy Mild Verified 11/07/24 11:44 Vital Signs Vital Signs - 24 hr 11/14/24 12:23 Temperature 98.4 F Pulse Rate 53 L Respiratory Rate 18 Blood Pressure 135/72 Pulse Oximetry 98 Oxygen Delivery Room Air Exam Const: General: cooperative and healthy appearing Resp: Effort & Inspection: normal respiratory effort and able to speak in complete sentences Auscultation: clear to auscultation bilaterally Cardio: Rate: regular rate Rhythm: regular rhythm GI: Inspection: normal to inspection GI Palp: No No hepatosplenomegaly present Auscultation: normal bowel sounds Rectal Exam: deferred Skin: General skin exam: normal color Psych: Appearance: grossly normal Mental Status: mental status grossly normal Assessment and Plan Assessment and plan (1) Iron deficiency anemia: Code(s): D50.9 - Iron deficiency anemia, unspecified Status: Acute Assessment and Plan: The patient is deemed a good candidate for the procedures. Consent signed. Will proceed.
[2024-11-14] MEDS: LACTATED RINGERS 1,000 ML 150 ML IV CONT ×2 (12:43→13:32)
--- NOTE | 2024-11-14 13:13 | WPDANESEPPF ---
Anes - Initial Pre Proc Eval Procedure: Operation Date: 11/14/24 13:30 Proposed Procedures p Esophagogastroduodenoscopy & Colonoscopy - Neftali Morejon MD Date/Time: 11/14/24 13:13 Surgeon: Neftali Morejon MD Pre Op Diagnosis: Iron deficiency anemia,personal hx of colon polyps Patient Data Age: 69 Gender: F Height: 1.78 m Weight: 84 kg Last Vital Signs Temp 36.9 C 11/14/24 12:23 Pulse 53 L 11/14/24 12:23 Resp 18 11/14/24 12:23 BP 135/72 11/14/24 12:23 Pulse Ox 98 11/14/24 12:23 O2 Del Method Room Air 11/14/24 12:23 Allergies Allergy/AdvReac Type Severity Reaction Status Date / Time No Known Allergies Allergy Mild Verified 11/07/24 11:44 Home Medications ?Medication ?Instructions ?Recorded ?Confirmed ?Type cholecalciferol (vitamin D3) 50 50 mcg PO DAILY 04/22/20 11/14/24 History mcg (2,000 unit) capsule multivitamin 1 cap PO DAILY 04/22/20 11/14/24 History THC Gummy 5 mg PO QHS 05/26/23 11/14/24 History atorvastatin 10 mg tablet See Rx Instructions .Route 06/07/24 11/14/24 Rx .COMPLEX #90 tabs ibuprofen-diphenhydramine citrate 2 cap PO QHS 06/27/24 11/07/24 History 200 mg-38 mg tablet (Advil PM) escitalopram oxalate 10 mg tablet 10 mg PO DAILY #90 tabs 08/17/24 11/14/24 Rx (Lexapro) sodium,potassium,mag sulfates 17.5 See Rx Instructions PO .COMPLEX 11/07/24 Rx gram-3.13 gram-1.6 gram oral soln #354 mL (Suprep Bowel Prep Kit) Patient hx anesthesia problems: none Family hx anesthesia problems: none Results Review: All pre-operative results and documents have been reviewed as part of the pre-operative evaluation. [facility] Past Medical History Medical History ANAID (iron deficiency anemia) Degenerative arthritis of right knee Exostosis of right posterior calcaneus Achilles tendinitis of right lower extremity Retrocalcaneal bursitis Right ankle. History of measles History of chicken pox Hepatitis C antibody test negative (09/23/17) History of colon polyps Blood clotting disorder Hyperlipidemia due to dietary fat intake Surgical History Surgical History History of dilation and curettage H/O LEEP H/O section 1979, 1982, 1986 Family History Family History Sibling Family history of multiple sclerosis Family history of malignant neoplasm of breast, Onset Age: 57 Multiple sclerosis Rheumatoid arthritis Father Heart disease Hyperlipidemia Grandparent Diabetes mellitus Rheumatoid arthritis Heart disease Other Family history of malignant neoplasm Hypertension Social History Social History Smoking status: Never smoker Second hand tobacco smoke exposure: No Alcohol intake: current Drinks per week: 3 Alcohol use details: couple times a month Substance use: current Substance use type: marijuana and other Other substance usage details: THC gummies Lack of Transportation: No Lack of Food: Never True Current Housing: I Have Housing Concerned About Future Housing: No Difficulty Paying Gas/Electric Bills: No Difficulty Paying for Meds: No Currently Unemployed: No Education: Bachelor's Degree Living arrangements: with family Occupation/Education: retired Gender identity (if verbalized by the patient): Female Sexual Orientation (if Verbalized by the Patient): Straight or Heterosexual Spiritual care concerns: No Agree to blood products: Yes Anes - Eval Final PreProcedure Day of Procedure 11/14/24 13:13 Patient weight: overweight Heart: regular rate and rhythm Lungs: clear to auscultation Airway: Mallampati scale class II Neurological: alert and oriented Last oral intake: >/= 8 hours ASA classification: II Emergent: no Anesthetic plan: proceed Anesthesia type and monitoring: general GIVS and standard monitoring Results Review: All pre-operative results and documents have been reviewed as part of the pre-operative evaluation. Informed Consent: The patient's anesthetic plan and its attendant risks and benefits were discussed with the patient/family/POA. Questions were solicited and answers provided to the satisfaction of the patient/family/POA.
--- NOTE | 2024-11-14 14:08 | SUR.OPER ---
EGD END 1402 COLONOSCOPY START 1409
[2024-11-14 14:27] VITALS: BP 105/64; PULSE 59; RESP 17; O2SAT 97
[2024-11-14 14:37] VITALS: BP 106/69; PULSE 54; RESP 15; O2SAT 97
[2024-11-14 14:47] VITALS: BP 139/83; PULSE 60; RESP 20; O2SAT 100
== END 2024-11-14 15:00 | disposition home or self-care (01) ==
PROVIDERS: PCP Family Medicine; Referring Provider Nurse Practitioner; Visit Provider Internal Medicine Gastroenterology
PROC: 0DJ08ZZ Inspection of Upper Intestinal Tract, Via Natural or Artificial Opening Endoscopic (ICD-10-PCS; CPT 45378; principal; 2024-11-14 13:30)
DX: D50.9 Iron deficiency anemia, unspecified (principal); K31.7 Polyp of stomach and duodenum; K29.30 Chronic superficial gastritis without bleeding; K29.80 Duodenitis without bleeding; E78.5 Hyperlipidemia, unspecified; M17.11 Unilateral primary osteoarthritis, right knee; F12.90 Cannabis use, unspecified, uncomplicated; Z79.1 Long term (current) use of non-steroidal anti-inflammatories (NSAID); Z98.890 Other specified postprocedural states; Z86.0101 Personal history of adenomatous and serrated colon polyps; Z80.3 Family history of malignant neoplasm of breast; Z82.49 Family history of ischemic heart disease and other diseases of the circulatory system
CPT/HCPCS: 43239; 88305; J2003; J2704; J7120

== ENCOUNTER 2024-12-19 09:14 | Outpatient (CLI) | payer MEDICARE, SELFPAY ==
--- OUTSIDE RECORDS SUMMARY | 2024-12-19 09:51 | XMS_ITS | Referral Summary ---
Author Organization [facility] Address [address] [place] [address] Care Team Providers Care Senior Accounts Payable Specialist Name Role Phone Elliot Malhotra MD Primary Care Provider [phone] Tasha Mccray RN Unavailable [phone] Allergies No known active allergies Medications diclofenac [...] (07/04/2018): Added automatically from request for surgery [id number] Social History Tobacco Use Types Packs/Day Years [...] on file Legal Sex Female 5:00 AM DOUGHNUT ICER MACHINE Gender Identity Not on file Sexual Orientation Not on file Last Filed Vital Signs Vital Sign Reading Time Taken Comments Blood Pressure 128/82 10/16/2023 11:10 AM DOUGHNUT ICER MACHINE Pulse 78 10/16/2023 11:10 AM DOUGHNUT ICER MACHINE Temperature 36.6 C (97.8 F) 10/16/2023 11:10 AM DOUGHNUT ICER MACHINE Respiratory Rate 12 10/16/2023 11:10 AM DOUGHNUT ICER MACHINE Oxygen Saturation 98% 10/16/2023 11:10 AM DOUGHNUT ICER MACHINE Inhaled Oxygen Concentration - - Weight 83.9 kg (185 lb) 10/16/2023 11:10 AM DOUGHNUT ICER MACHINE Height 162.6 cm (5' 4 ) 10/16/2023 11:10 AM DOUGHNUT ICER MACHINE Body Mass Index 31.76 10/16/2023 11:10 AM DOUGHNUT ICER MACHINE Plan of Treatment Not on file Insurance [employer] [place] Care Teams Senior Accounts Payable Specialist Relationship Specialty Start Date End Date Elliot Malhotra MD [address] [place] [address] PCP - General Family Medicine 11/11/20 Tasha Mccray, RN [address] [address] Registered Nurse High School Music Instructor 11/11/20
--- OUTSIDE RECORDS SUMMARY | 2024-12-19 09:52 | XMS_ITS | Clinical Summary ---
Author Organization [facility] Jenny Marquis Address [address] [place] [address] Care Team Providers Care Rn Neurosurgical Name Role Phone Lis Walker DO Primary Care Provider [phone] Allergies No known active allergies Medications atorvastatin [...] Encounters Date Type Department Care Team Description 12/05/2024 External Device Data STL ABSTRACTION Provider, Abstract 11/13/2024 External Device Data STL ABSTRACTION Provider, Abstract 11/07/2024 External Device Data STL ABSTRACTION Provider, Abstract 11/07/2024 External Device Data STL ABSTRACTION Provider, Abstract from Last 3 Months Family History Medical [...] 61 08/17/2024 10:20 AM CDT Temperature 36.7 C (98 F) 08/17/2024 10:20 AM CDT Respiratory Rate 16 [...] Colonography Q 5 years 02/09/2001 PNEUMOCOCCAL VACCINE 50+ YEARS (1 of 1 - PCV) 02/10/20 06 ZOSTER VACCINE (1 of 2) 02/09/2006 OSTEOPOROSIS SCREENING 02/09/2021 INFLUENZA VACCINE (#1) 2024 RSV VACCINE (60+ or ) (1 - 1-dose 75+ series) 02/09/2031 Insurance MEDICARE PART A AND B AETNA MEDICARE SUPP AESSI Care Teams Rn Neurosurgical Relationship Specialty Start Date End Date Lis Walker DO [facility] [facility] [address] [place] [address] PCP - General Family Practice 08/17/24
--- OUTSIDE RECORDS SUMMARY | 2024-12-19 09:52 | XMS_ITS | Continuity of Care Document ---
Author Organization [facility]. If a dditional information is needed, contact Health Information Management at [phone] Address [address] [place] [address] Phone Care Team Providers Care Supply Chain Program Manager Name Role Phone Unavailable Unavailable Unavailable Unavailable Unavailable Unavailable Unavailable Unavailable Unavailable Problems Urinary tract infectious dis ease Onset:04-Jan-2023 Gera ESPINOZA Sciatica Onset:04-Jan-2023 Gera ESPINOZA Allergies and Adverse Reactions No Known Allergies(Allergy) Onset: 04-Jan-2023 Social History Smoking Status Never smoked tobacco Recorded: 04-Jan-2023
--- OUTSIDE RECORDS SUMMARY | 2024-12-19 09:52 | XMS_ITS | Clinical Summary ---
Author Organization [facility] Address [address] [place] [address] Care Team Providers Care Local City Driver Name Role Phone Elliot Malhotra MD Primary Care Provider [phone] Tasha Mccray RN Unavailable [phone] Allergies No known active allergies Medications diclofenac [...] (07/04/2018): Added automatically from request for surgery [id number] Surgical History Surgery Date Site/Laterality Comments SECTION x 3 FL UPPER GI AIR CONTRAST W KUB 11/23/2018 Left Medical History Medical History Date Comments H/O blood clots 1994 Superficial Vein LLE? Hypercholesteremia improved Family History [...] on file Legal Sex Female 5:00 AM HYDROELECTRIC PLANT MAINTAINER Gender Identity Not on file Sexual Orientation Not on file Obstetrics History Last Filed Vital Signs Vital Sign Reading Time Taken Comments Blood Pressure 128/82 10/16/2023 11:10 AM HYDROELECTRIC PLANT MAINTAINER Pulse 78 10/16/2023 11:10 AM HYDROELECTRIC PLANT MAINTAINER Temperature 36.6 C (97.8 F) 10/16/2023 11:10 AM HYDROELECTRIC PLANT MAINTAINER Respiratory Rate 12 10/16/2023 11:10 AM HYDROELECTRIC PLANT MAINTAINER Oxygen Saturation 98% 10/16/2023 11:10 AM HYDROELECTRIC PLANT MAINTAINER Inhaled Oxygen Concentration - - Weight 83.9 kg (185 lb) 10/16/2023 11:10 AM HYDROELECTRIC PLANT MAINTAINER Height 162.6 cm (5' 4 ) 10/16/2023 11:10 AM HYDROELECTRIC PLANT MAINTAINER Body Mass Index 31.76 10/16/2023 11:10 AM HYDROELECTRIC PLANT MAINTAINER Plan of Treatment Health Maintenance Due Date Last Done Comments Breast Cancer Screening-Mammogram 1955 Colon Cancer Screening-Colonoscopy 1955 Depression Screening 1955 Fall Risk Assessment 1955 Hepatitis C Screening 1955 Osteoporosis Screening-Bone Density Scan 1955 Hepatitis B Screening 02/09/1974 Well Visit 65+ 02/09/2021 Covid-19 Vaccine (2023- 5 season) 2024 06/14/2023, 07/23/2022, 01/26/2022, Additional history exists Influenza Vaccine (#1) 2024 , 07/23/2022, 07/23/2021, Additional history exists DTaP/Tdap/Td Vaccine (2 - Td or Tdap) 12/09/2031 12/09/2021 Zoster Vaccine Completed 12/29/2022, 11/18, 05/03/2017 Pneumococcal vaccine 65+ Completed 05/26/2023, 07/17 Insurance [place] Care Teams Local City Driver Relationship Specialty Start Date End Date Elliot Malhotra MD [address] [place] [address] PCP - General Family Medicine 11/11/20 Tasha Mccray, RN [address] [address] Registered Nurse Lasting Floorworker 11/11/20
[2024-12-19 13:06] LABS: Alanine Aminotransferase 19 U/L (6-35); Albumin Level 3.6 g/dL (3.5-5.1); Alkaline Phosphatase 81 U/L (38-126); Anion Gap 7 mmol/L (4-12); Aspartate Amino Transferase 44 U/L (14-36); Bilirubin,Total 0.6 mg/dL (0.2-1.3); Blood Urea Nitrogen 12 mg/dL (7-17); Calcium 8.5 mg/dL (8.4-10.2); Carbon Dioxide 27 mmol/L (22-30); Chloride 105 mmol/L (98-107); Cholesterol 171 mg/dL (0-200); Estimated Glomerular Filt Rate > 60; Glucose 88 mg/dL (65-110); HDL Direct 90 mg/dL; Potassium 4.3 mmol/L (3.4-5.0); Sodium 139 mmol/L (137-145); Triglycerides 49 mg/dL (<150)
[2024-12-19 13:17] LABS: LDL Cholesterol Direct 49 mg/dL
[2024-12-19 13:28] LABS: Iron 35 ug/dL (37-170)
[2024-12-19 13:40] LABS: Percent Iron Saturation 8 % (20-50)
[2024-12-19 14:24] LABS: Vitamin D 25 Hydroxy 36.2 ng/mL
== END 2024-12-19 09:15 | disposition home or self-care (01) ==
LOC: ANHGOSHLAB 09:16
PROVIDERS: PCP Family Medicine; Visit Provider Nurse Practitioner
DX: E55.9 Vitamin D deficiency, unspecified (principal); E78.00 Pure hypercholesterolemia, unspecified; D50.9 Iron deficiency anemia, unspecified; R79.89 Other specified abnormal findings of blood chemistry; Z79.899 Other long term (current) drug therapy
CPT/HCPCS: 36415; 80053; 80061; 82306; 83540; 83550

== ENCOUNTER 2025-07-08 09:04 | Outpatient (CLI) | payer MEDICARE, SELFPAY ==
--- OUTSIDE RECORDS SUMMARY | 2025-07-08 09:50 | XMS_ITS | Clinical Summary ---
Author Organization [facility] Mar[facility] Address [address] [place] [address] Care Team Providers Care Chief Dietitian Name Role Phone Lis Walker DO Primary Care Provider [phone] Allergies No known active allergies Medications atorvastatin [...] Encounters Date Type Department Care Team Description 07/02/2025 External Device Data STL ABSTRACTION Provider, Abstract 06/25/2025 External Device Data STL ABSTRACTION Provider, Abstract 05/22/2025 External Device Data STL ABSTRACTION Provider, Abstract 05/21/2025 External Device Data STL ABSTRACTION Provider, Abstract 05/21/2025 External Device Data STL ABSTRACTION Provider, Abstract 05/01/2025 External Device Data STL ABSTRACTION Provider, Abstract 05/01/2025 External Device Data STL ABSTRACTION Provider, Abstract 04/30/2025 External Device Data STL ABSTRACTION Provider, Abstract [...] 10:20 AM CDT Height 177.8 cm (5' 10) 08/17/2024 10:20 AM CDT Body Mass Index 26.54 08/17/2024 10:20 AM CDT Plan of Treatment Health Maintenance Due Date Last Done Comments Pre-Diabetes and Diabetes Screening 1955 DTAP/TDAP/TD VACCINES (1 - Tdap) 02/09/1975 FIT-DNA Q 3 years 02/09/2001 FIT/FOBT Q 1 year 02/09/2001 Flex Sig/CT Colonography Q 5 years 02/09/2001 PNEUMOCOCCAL VACCINE 50+ YEA RS (1 of 1 - PCV) 02/09/2006 ZOSTER VACCINE (1 of 2) 02/09/2006 INFLUENZA VACCINE (#1) 2025 BREAST CANCER SCREENING 07/05/2025 07/05/20 24, 07/05/2024, 03/24/2021, Additional history exists OSTEOPOROSIS SCREENING 04/16/2027 04/16/2022 RSV VACCINE (60+ or ) (1 - 1-dose 75+ series) 02/09/2031 COLORECTAL SCREENING 11/14/2034 11/14/2024, 05/04/20 21 Colorectal Cancer Screening 11/14/2034 Insurance MEDICARE PART A AND B AET MEDICARE SUPP AESSI Care Teams Chief Dietitian Relationship Specialty Start Date End Date Lis Walker DO [facility] [address] [place] [address] PCP - General Family Practice 08/17/24
[2025-07-08 13:03] LABS: Alanine Aminotransferase 19 U/L (6-35); Albumin Level 3.8 g/dL (3.5-5.1); Alkaline Phosphatase 78 U/L (38-126); Anion Gap 6 mmol/L (4-12); Aspartate Amino Transferase 50 U/L (14-36); Bilirubin,Total 0.7 mg/dL (0.2-1.3); Blood Urea Nitrogen 16 mg/dL (7-17); Calcium 8.6 mg/dL (8.4-10.2); Carbon Dioxide 28 mmol/L (22-30); Chloride 104 mmol/L (98-107); Cholesterol 188 mg/dL (0-200); Estimated Glomerular Filt Rate > 60; Glucose 80 mg/dL (65-110); HDL Direct 64 mg/dL; Potassium 4.4 mmol/L (3.4-5.0); Sodium 138 mmol/L (137-145); Total Protein 6.9 g/dL (6.3-8.2); Triglycerides 81 mg/dL (<150)
[2025-07-08 13:15] LABS: Iron 74 ug/dL (37-170)
[2025-07-08 13:33] LABS: Percent Iron Saturation 17 % (20-50)
[2025-07-08 13:40] LABS: Thyroid Stimulating Hormone 0.720 uIU/mL (0.465-4.680)
[2025-07-08 13:50] LABS: Hematocrit 42.5 % (37.0-47.0); Hemoglobin 13.0 g/dL (12.0-15.0); Mean Corpuscular HGB Conc 30.6 g/dl (32-36); Mean Corpuscular Hemoglobin 26.6 pg (26-34); Mean Corpuscular Volume 86.9 fl (80-100); Platelet Count Result 332 k/mm3 (150-375); Red Blood Count 4.89 M/mm3 (4.2-5.4); White Blood Count 5.2 K/mm3 (4.5-10.0)
== END 2025-07-08 09:05 | disposition home or self-care (01) ==
PROVIDERS: PCP Family Medicine; Visit Provider Nurse Practitioner
DX: E78.00 Pure hypercholesterolemia, unspecified (principal); E03.9 Hypothyroidism, unspecified; D50.9 Iron deficiency anemia, unspecified; E55.9 Vitamin D deficiency, unspecified
CPT/HCPCS: 36415; 80053; 80061; 82306; 83540; 83550; 84443; 85027